=== PATIENT | female | born 1960 | race Hispanic/Latino ===

== ENCOUNTER 2020-01-17 16:05 | Emergency (ER) | payer OTHER ==
[~2020-01-17 16:05] MED LIST: Iopamidol-370 76% 500 ML 1 ML ONE
[2020-01-17 17:13] LABS: #Lymphocytes 1.2 thou/uL (1.20-3.40); #Monocytes 0.7 thou/uL (0.11-0.59); #Neutrophils 4.7 thou/uL (1.40-6.50); %Basophils 0.1 % (0.0-1.0); %Eosinophils 0.7 % (0.0-10.0); %Lymphocytes 18.3 % (21.0-51.0); %Monocytes 9.9 % (0.0-10.0); %Neutrophils 70.8 % (42.0-75.0); Mean Corpuscular HGB CONC 33.2 g/dL (32.0-36.0); Mean Corpuscular Hemoglobin 29.8 pg (27.0-31.0); Mean Corpuscular Volume 89.7 fL (78.0-98.0); Mean Platelet Volume 6.9 fL (7.4-10.4); Platelet Count 387 thou/uL (130-400); RBC Distribution Width 11.2 % (11.5-14.5); Red Blood Cell (RBC) Count 4.71 mill/uL (4.20-5.40); White Blood Cell (WBC) Count 6.6 thou/uL (4.8-10.8)
[2020-01-17 17:42] LABS: ALT (SGPT) 67 U/L (8-55); AST (SGOT) 68 U/L (5-34); Albumin 3.9 g/dL (3.5-5.0); Alkaline Phosphatase 392 U/L (40-110); Anion Gap 15 mmol/L (10-20); BUN (Urea Nitrogen) 11 mg/dL (9.8-20.1); Bilirubin, Total 0.6 mg/dL (0.2-1.2); Calc. Creatinine Clearance 0 mL/min (70-130); Calcium 9.2 mg/dL (7.8-10.44); Carbon Dioxide 24 mmol/L (22-29); Chloride 104 mmol/L (98-107); Estimated GFR-MDRD 79; Globulin 3.7 g/dL (2.4-3.5); Glucose 98 mg/dL (70-105); Lipase 82 U/L (8-78); Potassium 4.3 mmol/L (3.5-5.1); Protein, Total 7.6 g/dL (6.0-8.3); Sodium 139 mmol/L (136-145)
[2020-01-17 17:43] LABS: Bilirubin Negative (Negative); Blood, Urine Negative (Negative); Clarity Clear (Clear); Glucose, Urine (Dipstick) Normal (Negative); Ketone, Urine 40 mg/dL (Negative); Leukocyte Negative Leu/uL (Negative); Nitrite Negative (Negative); Protein, Urine (Dipstick) 20 mg/dL (Neg-Trace); Specific Gravity, Urine 1.021 (1.002-1.036); Urobilinogen 3 mg/dL (Less than 2); pH, Urine 6.5 (5.0-9.0)
[2020-01-17] MEDS ORDERED: Ondansetron PF 4 MG/2 ML Vial ONE (18:38)
[2020-01-17] MEDS ORDERED: Morphine 4 MG/ML VIAL ONE (18:38)
--- NOTE | 2020-01-17 19:28 | ULT ---
RIGHT UPPER QUADRANT ABDOMINAL ULTRASOUND: 01/17/20 COMPARISON: None. HISTORY: Right upper quadrant abdominal pain with nausea and vomiting for five days. TECHNIQUE: Multiplanar marte scale and color Doppler images were obtained in a right upper quadrant abdominal ult rasound. FINDINGS: The liver is normal in echogenicity without focal lesions or intrahepatic ductal dilatation. The gall bladder is distended with a small amount of sludge. No shadowing stones are seen in the gallbladder a nd there is no gallbladder wall thickening or pericholecystic fluid. The common bile duct is upper li mits of normal measuring 7 mm. The visualized portions of the pancreas are unremarkable. The right ki dney is normal in echogenicity without hydronephrosis or calculus and measures 11.3 cm in length. IMPRESSION: Gallbladder sludge; otherwise unremarkable exam. POS: EAA
--- NOTE | 2020-01-17 21:03 | CT ---
CT ABDOMEN AND PELVIS WITH CONTRAST: 01/17/20 COMPARISON: Gallbladder ultrasound 01/17/20. HISTORY: Right upper quadrant abdominal pain with nausea and vomiting for five days. TECHNIQUE: Multiple contiguous axial images were obtained in a CT of the abdomen and pelvis with contrast. Sagit deny and coronal reformats were performed. FINDINGS: There are scattered hypodensities in the liver measuring up to 1.5 cm in size which likely represents cysts. The gallbladder, kidneys, adrenal glands, spleen, and pancreas are unremarkable. No free air, free fluid, or stranding changes are seen in the abdomen or pelvis. Scattered diverticula are seen in the colon. The reproductive organs are unremarkable. The small glenn l and appendix are unremarkable. No abdominal or pelvic lymphadenopathy are seen. Atherosclerotic calcifications are seen in the aorta. There are scattered multifocal peripheral opacities in the lung bases consistent with COVID pneumonia . Abdominal wall soft tissues are unremarkable. Degenerative changes are seen in the spine. IMPRESSION: 1. Hepatic cysts. 2. No evidence of acute intra-abdominal abnormality. 3. COVID pneumonia. 4. Diverticulosis. POS: EAA
[2020-01-18 02:59] LABS: SARS-CoV-2 MS2 Positive; SARS-CoV-2 N Gene Positive; SARS-CoV-2 S Gene Positive; SARS-CoV-2 by NAA DETECTED (NotDetected); SARS-CoV-2 orf1ab Positive
== END 2020-01-17 21:25 | disposition home or self-care (01) ==
LOC: ERS 16:05
DX: K76.89 Other specified diseases of liver (principal); K82.8 Other specified diseases of gallbladder; R94.5 Abnormal results of liver function studies
CPT/HCPCS: 36415; 74177; 76705; 80053; 81003; 83690; 84484; 85025; 87635; 93005; 96374; 96375; J2270; J2405; Q9967; U0003